=== PATIENT | female | born 1990 | race Caucasian/White ===

== ENCOUNTER → 2016-07-16 | Outpatient (CLI) | payer BC ==
[2016-07-16 19:46] LABS: MEAN CORPUSCULAR HEMOGLOBIN 30.3 pg (27.0-33.0); MEAN CORPUSCULAR HGB CONC 33.5 g/dl (32.0-36.5); MEAN CORPUSCULAR VOLUME 90.5 fl (80.0-96.0); RED CELL DISTRIBUTION WIDTH 12.2 % (11.5-14.5); WHITE BLOOD COUNT 6.7 K/mm3 (4.0-10.0)
[2016-07-16 19:56] LABS: ALBUMIN 3.6 GM/DL (3.2-5.2); ALBUMIN/GLOBULIN RATIO 1.06 (1.00-1.93); ALKALINE PHOSPHATASE 52 U/L (45-117); ALT/SGPT 20 U/L (12-78); ANION GAP 8 MEQ/L (8-16); AST/SGOT 14 U/L (15-37); BILIRUBIN,TOTAL 0.3 MG/DL (0.2-1.0); BLOOD UREA NITROGEN 8 MG/DL (7-18); CALCIUM LEVEL 8.2 MG/DL (8.5-10.1); CARBON DIOXIDE LEVEL 28 MEQ/L (21-32); CHLORIDE LEVEL 104 MEQ/L (98-107); FOLATE 21.1 NG/ML; FREE T4 1.02 NG/DL (0.76-1.46); GLOMERULAR FILTRATION RATE > 60.0 (>60); GLUCOSE, FASTING 94 MG/DL (70-105); POTASSIUM SERUM 4.1 MEQ/L (3.5-5.1); SODIUM LEVEL 140 MEQ/L (136-145); VITAMIN B12 LEVEL 459 PG/ML
[2016-07-16 20:05] LABS: EOSINOPHILS 2 % (0-5)
[2016-07-17 08:19] LABS: CONTROL LINE MONO INT CTR LINE PRESENT
[2016-07-20 00:06] LABS: Lyme Disease IgG/IgM Antibodie <0.91 ISR (0.00-0.90); Lyme Disease IgM Ab Quantitati <0.80 index (0.00-0.79)
== END ==
LOC: M WUC 16:28
PROVIDERS: ATTEND Physician Assistant
DX: R53.83 Other fatigue (principal); R20.2 Paresthesia of skin

== ENCOUNTER → 2016-11-29 | Outpatient (REF) | payer BC ==
[2016-11-29 19:49] LABS: FERRITIN 14 NG/ML (8-252); PERCENT SATURATION 10.8 % (13.2-37.4); TOTAL IRON BINDING CAPACITY 444 UG/DL (250-450); TOTAL PROTEIN 6.9 GM/DL (6.4-8.2)
[2016-12-01 12:52] LABS: ALBUMIN 4.04 GM/DL (3.29-5.55); ALBUMIN % 58.5 % (55.8-66.1); GAMMA GLOBULIN % 16.3 % (11.1-18.8)
[2016-12-02 14:15] LABS: F8 ACTIVITY FOR F8 PANEL 76 % (57-163); F8 ACTIVITY vWB FOR F8 PANEL 59 % (50-200); F8 ANTIGEN FOR F8 PANEL 71 % (50-200); INTERPRETATION: Note (.)
== END ==
LOC: M LAB REF 16:58
PROVIDERS: ATTEND Internal Medicine Medical Oncology
DX: M89.9 Disorder of bone, unspecified (principal)

== ENCOUNTER → 2018-02-09 | Outpatient (CLI) | payer BC ==
[2018-02-09 19:25] LABS: C REACTIVE PROTEIN QUANTITATIV 0.82 MG/DL (0.00-0.30)
[2018-02-09 20:46] LABS: ERYTHROCYTE SEDIMENTATION RATE 7 mm/hr (0-20)
[2018-02-14 00:07] LABS: ANCA-ATYPICAL <1:20 titer (Neg:<1:20); ANTI-SACCHAROMYCES CEREV. IgA <20.0 Units (0.0-24.9); ANTI-SACCHAROMYCES CEREV. IgG 40.5 Units (0.0-24.9); CYTOPLASMIC NEUTROP AB ANCA-C <1:20 titer (Neg:<1:20); PERINUCLEAR AB ANCA-P <1:20 titer (Neg:<1:20)
== END ==
LOC: M SMT 14:59
DX: R11.0 Nausea (principal); R10.9 Unspecified abdominal pain; R19.4 Change in bowel habit; K62.5 Hemorrhage of anus and rectum; Z80.0 Family history of malignant neoplasm of digestive organs; R14.1 Gas pain; R14.0 Abdominal distension (gaseous)
CPT/HCPCS: 86256

== ENCOUNTER → 2018-03-15 | Outpatient (CLI) | payer BC ==
[2018-03-15 18:35] LABS: HEMATOCRIT 37.2 % (36.0-47.0); HEMOGLOBIN 11.9 g/dl (12.0-15.5); MEAN CORPUSCULAR HEMOGLOBIN 28.2 pg (27.0-33.0); MEAN CORPUSCULAR VOLUME 88.2 fl (80.0-96.0); PLATELET COUNT, AUTOMATED 231 10^3/uL (150-450); RED BLOOD COUNT 4.22 10^6/uL (4.00-5.40); RED CELL DISTRIBUTION WIDTH 12.4 % (11.5-14.5); WHITE BLOOD COUNT 6.1 10^3/uL (4.0-10.0)
[2018-03-15 18:45] LABS: ADD MANUAL DIFFER YES; DIFF SLIDE NUMBER 266; POSITIVE MORPH POS FLAG
[2018-03-15 18:49] LABS: FERRITIN 71 NG/ML (8-252); FREE T4 1.27 NG/DL (0.76-1.46); IRON (FE) 50 UG/DL (50-170); PERCENT SATURATION 13.3 % (13.2-45.0); THYROGLOBULIN ANTIBODY 34.6 U/ML (<60.0); THYROID PEROXIDASE ANTIBODY < 28.0 U/ML (<60.0); TOTAL 25(OH) VITAMIN D 25.4 NG/ML (30.0-100.0); TOTAL IRON BINDING CAPACITY 375 UG/DL (250-450)
[2018-03-15 19:42] LABS: ATYPICAL LYMPH 1 % (0-5); BASOPHILS 1 % (0-4); EOSINOPHILS 3 % (0-5); LYMPHOCYTES 50 % (16-52); MONOCYTES 6 % (0-8); NEUTROPHILS 39 % (35-75)
[2018-03-15 19:43] LABS: PLATELET ESTIMATE NORMAL (NORMAL)
[2018-03-19 00:06] LABS: Lyme Disease IgG Ab 18 kDa Ban Absent (.); Lyme Disease IgG Ab 23 kDa Ban Absent (.); Lyme Disease IgG Ab 28 kDa Ban Absent (.); Lyme Disease IgG Ab 30 kDa Ban Absent (.); Lyme Disease IgG Ab 39 kDa Ban Absent (.); Lyme Disease IgG Ab 41 kDa Ban Absent (.); Lyme Disease IgG Ab 45 kDa Ban Absent (.); Lyme Disease IgG Ab 58 kDa Ban Absent (.); Lyme Disease IgG Ab 66 kDa Ban Absent (.); Lyme Disease IgG Ab 93 kDa Ban Absent (.); Lyme Disease IgG West Blot Int Negative (.); Lyme Disease IgG/IgM Antibodie <0.91 ISR (0.00-0.90); Lyme Disease IgM Ab 23 kDa Ban Present (.); Lyme Disease IgM Ab 39 kDa Ban Present (.); Lyme Disease IgM Ab 41 kDa Ban Present (.); Lyme Disease IgM Ab Quantitati 1.25 index (0.00-0.79); Lyme Disease IgM West Blot Int Positive (.); QuantiFERON-TB Gold Plus Negative (Negative)
== END ==
LOC: M SMT 13:40
DX: R53.83 Other fatigue (principal); R61 Generalized hyperhidrosis; R05 Cough
CPT/HCPCS: 83550

== ENCOUNTER → 2018-06-20 | Outpatient (CLI) | payer BC | LOC: M CARPUL 08:16 | PROVIDERS: ATTEND Obstetrics & Gynecology | DX: R01.1 Cardiac murmur, unspecified (principal) ==

== ENCOUNTER → 2018-12-11 | Outpatient (CLI) | payer BC ==
[2018-12-11 17:24] LABS: BASO % 0.6 % (0.0-1.0); EOS # 0.2 10^3/uL (0.0-0.50); EOS % 2.5 % (0.0-3.0); HEMATOCRIT 36.1 % (36.0-47.0); LYMPH # 2.6 10^3/uL (1.5-6.5); LYMPH % 36.1 % (24.0-44.0); MEAN CORPUSCULAR HGB CONC 33.2 g/dl (32.0-36.5); MEAN CORPUSCULAR VOLUME 90.3 fl (80.0-96.0); MONO # 0.5 10^3/uL (0.0-0.8); MONO % 7.1 % (0.0-5.0); NEUTROPHILS # 3.8 10^3/uL (1.8-7.7); NEUTROPHILS % 53.6 % (36.0-66.0); PLATELET COUNT, AUTOMATED 295 10^3/uL (150-450); WHITE BLOOD COUNT 7.2 10^3/uL (4.0-10.0)
[2018-12-11 17:34] LABS: C REACTIVE PROTEIN QUANTITATIV 1.93 MG/DL (0.00-0.30); FREE T4 0.98 NG/DL (0.76-1.46); THYROID STIMULATING HORMONE 1.39 uIU/ML (0.358-3.740)
[2018-12-11 18:11] LABS: ERYTHROCYTE SEDIMENTATION RATE 10 mm/hr (0-20)
[2018-12-11 18:13] LABS: HEMOGLOBIN A1c 5.7 %
== END ==
LOC: M SMT 14:39
PROVIDERS: ATTEND Family Medicine
DX: E66.3 Overweight (principal); L02.411 Cutaneous abscess of right axilla

== ENCOUNTER → 2019-09-10 | Outpatient (REF) | payer BC | LOC: M LAB REF 16:44 | PROVIDERS: ATTEND Family Medicine | DX: R10.2 Pelvic and perineal pain (principal) ==

== ENCOUNTER → 2019-09-11 | Outpatient (REF) | payer OTHER | LOC: M LAB REF 17:52 | PROVIDERS: ATTEND Family Medicine | DX: R10.2 Pelvic and perineal pain (principal) ==

== ENCOUNTER → 2019-10-12 | Outpatient (REF) | payer OTHER | LOC: M SFHCWAGY 17:55 | PROVIDERS: ATTEND Advanced Practice Midwife | DX: Z12.4 Encounter for screening for malignant neoplasm of cervix (principal) ==

== ENCOUNTER → 2019-12-14 | Outpatient (REF) | payer OTHER | LOC: M LAB REF 10:09 | PROVIDERS: ATTEND Dermatology | DX: C44.509 Unspecified malignant neoplasm of skin of other part of trunk (principal) ==

== ENCOUNTER → 2020-01-04 | Outpatient (REF) | payer OTHER | LOC: M LAB REF 13:30 | PROVIDERS: ATTEND Dermatology | DX: C44.519 Basal cell carcinoma of skin of other part of trunk (principal) ==

== ENCOUNTER → 2020-01-16 | Outpatient (CLI) | payer OTHER | LOC: M PLALAB 09:44 | PROVIDERS: ATTEND Advanced Practice Midwife | DX: O36.80X0 Pregnancy with inconclusive fetal viability, not applicable or unspecified (principal); Z3A.00 Weeks of gestation of pregnancy not specified ==

== ENCOUNTER → 2020-01-18 | Outpatient (CLI) | payer OTHER | LOC: M PLALAB 09:52 | PROVIDERS: ATTEND Advanced Practice Midwife | DX: Z34.00 Encounter for supervision of normal first pregnancy, unspecified trimester (principal) ==

== ENCOUNTER → 2020-01-23 | Outpatient (CLI) | payer OTHER | LOC: M PLALAB 12:38 | PROVIDERS: ATTEND Advanced Practice Midwife | DX: O02.1 Missed abortion (principal) ==

== ENCOUNTER → 2020-02-01 | Outpatient (CLI) | payer OTHER | LOC: M PLALAB 11:30 | PROVIDERS: ATTEND Advanced Practice Midwife | DX: O20.0 Threatened abortion (principal) ==

== ENCOUNTER → 2020-02-08 | Outpatient (CLI) | payer OTHER | LOC: M PLALAB 14:29 | PROVIDERS: ATTEND Advanced Practice Midwife | DX: O20.0 Threatened abortion (principal); Z3A.00 Weeks of gestation of pregnancy not specified ==

== ENCOUNTER → 2020-02-15 | Outpatient (CLI) | payer OTHER | LOC: M PLALAB 09:53 | PROVIDERS: ATTEND Advanced Practice Midwife | DX: O20.0 Threatened abortion (principal) ==

== ENCOUNTER → 2020-02-26 | Outpatient (REF) | payer OTHER | LOC: M LAB REF 16:55 | PROVIDERS: ATTEND Physician Assistant | DX: S21.209A Unspecified open wound of unspecified back wall of thorax without penetration into thoracic cavity, initial encounter (principal); X58.XXXA Exposure to other specified factors, initial encounter; Y92.89 Other specified places as the place of occurrence of the external cause ==

== ENCOUNTER → 2020-04-04 | Outpatient (CLI) | payer OTHER ==
[2020-04-04 14:22] LABS: BASO % 0.6 % (0.0-1.0); EOS # 0.2 10^3/uL (0.0-0.5); EOS % 3.7 % (0.0-3.0); HEMATOCRIT 41.5 % (36.0-47.0); HEMOGLOBIN 13.4 g/dl (12.0-15.5); LYMPH # 2.7 10^3/uL (1.5-5.0); LYMPH % 44.2 % (24.0-44.0); MEAN CORPUSCULAR HGB CONC 32.3 g/dl (32.0-36.5); MEAN CORPUSCULAR VOLUME 92.8 fl (80.0-96.0); MONO # 0.4 10^3/uL (0.0-0.8); NEUTROPHILS # 2.7 10^3/uL (1.5-8.5); NEUTROPHILS % 44.3 % (36.0-66.0); PLATELET COUNT, AUTOMATED 353 10^3/uL (150-450); RED BLOOD COUNT 4.47 10^6/uL (4.00-5.40); WHITE BLOOD COUNT 6.2 10^3/uL (4.0-10.0)
[2020-04-04 15:04] LABS: ALBUMIN 3.9 GM/DL (3.2-5.2); ALT/SGPT 24 U/L (12-78); BILIRUBIN,TOTAL 0.5 MG/DL (0.2-1.0); BLOOD UREA NITROGEN 12 MG/DL (7-18); CALCIUM LEVEL 9.2 MG/DL (8.5-10.1); CARBON DIOXIDE LEVEL 30 MEQ/L (21-32); CHLORIDE LEVEL 105 MEQ/L (98-107); CREATININE FOR GFR 0.96 MG/DL (0.55-1.30); FREE T4 1.01 NG/DL (0.76-1.46); GLOMERULAR FILTRATION RATE > 60.0 (>60); GLUCOSE, FASTING 93 MG/DL (70-100); POTASSIUM SERUM 4.3 MEQ/L (3.5-5.1); SODIUM LEVEL 140 MEQ/L (136-145); TOTAL PROTEIN 7.4 GM/DL (6.4-8.2)
== END ==
LOC: M PLALAB 09:14
PROVIDERS: ATTEND Family Medicine
DX: Z13.29 Encounter for screening for other suspected endocrine disorder (principal); Z13.0 Encounter for screening for diseases of the blood and blood-forming organs and certain disorders involving the immune mechanism; E55.9 Vitamin D deficiency, unspecified

== ENCOUNTER → 2020-05-06 | Outpatient (REF) | payer OTHER ==
[2020-05-06 13:06] LABS: HEMATOCRIT 39.6 % (36.0-47.0); HEMOGLOBIN 12.8 g/dl (12.0-15.5); MEAN CORPUSCULAR HEMOGLOBIN 29.1 pg (27.0-33.0); MEAN CORPUSCULAR HGB CONC 32.3 g/dl (32.0-36.5); PLATELET COUNT, AUTOMATED 334 10^3/uL (150-450); WHITE BLOOD COUNT 8.2 10^3/uL (4.0-10.0)
[2020-05-06 14:28] LABS: HCG, SERUM QUANTITATIVE 1423 MIU/ML; HEPATITIS C VIRUS ABY INDEX 0.1 INDEX (<0.8); HIV 1&2 SCREEN CENTAUR NEGATIVE (NEGATIVE)
== END ==
LOC: M LAB REF 12:27
PROVIDERS: ATTEND Advanced Practice Midwife
DX: Z32.01 Encounter for pregnancy test, result positive (principal)

== ENCOUNTER → 2020-05-14 | Outpatient (CLI) | payer OTHER ==
--- NOTE | 2020-05-14 09:48 | REP ---
INDICATION: DATING/VIABILITY. COMPARISON: None. TECHNIQUE: Transabdominal and transvaginal scanning. FINDINGS: Scanning demonstrates a single living intrauterine gestation in a free-floating lie. heart rate is recorded at 103 beats per minute. Mean sac size diameter is 2.1 cm which would correspond with a gestational age estimate is 6 weeks 4 days. The crown-rump length of the embryonic pole is 3 mm which would correspond with a gestational age estimate of 5 weeks 6 days. Closed cervical length is 3.4 cm. IMPRESSION: Findings consistent with a living single intrauterine gestation at 5 weeks 6 days by crown-rump length. LIBRA by sonography January 08, 2021. heart rate somewhat slow at 103 beats per minute. No other abnormality. Visualization is somewhat limited due to very early gestational age. <Electronically signed by Estrada Gtz > 05/14/20 [id number]
== END ==
LOC: M WHC 09:01
PROVIDERS: ATTEND Advanced Practice Midwife
DX: Z36.9 Encounter for antenatal screening, unspecified (principal); Z3A.01 Less than 8 weeks gestation of pregnancy

== ENCOUNTER → 2020-05-29 | Outpatient (CLI) | payer OTHER ==
--- NOTE | 2020-05-29 14:06 | REP ---
INDICATION: DATING/VIABILITY COMPARISON: None. TECHNIQUE: Transabdominal 1st trimester obstetrical ultrasound with color Doppler evaluation. FINDINGS: Single live early intrauterine is appreciated. Gestational sac with yolk sac and pole identified. [place]-rump length of 17 mm corresponds to 8 weeks 1 day gestational age with estimated date of delivery 01/07/2021. heart rate equals 165 beats per minute. No gross abnormalities are identified. IMPRESSION: Single live early intrauterine at 8 weeks 1 day gestational age. Complete anatomical assessment should be performed and 19-20 weeks. <Electronically signed by Jon Pearson > 05/29/20 [id number]
== END ==
LOC: M WHC 12:30
PROVIDERS: ATTEND Obstetrics & Gynecology
DX: Z36.9 Encounter for antenatal screening, unspecified (principal); Z3A.08 8 weeks gestation of pregnancy

== ENCOUNTER → 2020-08-19 | Outpatient (CLI) | payer OTHER ==
--- NOTE | 2020-08-19 10:18 | REP ---
INDICATION: ANATOMY. COMPARISON: None. TECHNIQUE: Multiple sonographic images of the gravid uterus. FINDINGS: There is a single intrauterine gestation in a cephalic presentation. The placenta is posterior with grade 1 maturity. There is no previa. The umbilical cord inserts centrally on the to the placenta. There is a three-vessel cord. The cord insertion is unremarkable. The cervix measures 3.4 cm. heart rate is 143 beats per minute. Subjectively the amniotic fluid volume is normal. The composite ultrasound gestational age by today's study is 20 weeks 1 day with an LIBRA of 01/05/2021. Gestational age by the 1st ultrasound is 21 weeks 0 days, the LIBRA is 12/30/2020. Gestational age by LMP is 21 weeks 0 days, the LIBRA is 12/30/2020. The weight is 376 g which corresponds to 0 lb, 13 oz. This is the 33rd percentile for 21 weeks 0 days. The following anatomic structures are unremarkable: Cranium, cavum septum pellucidum, falx, intracranial ventricles, choroid plexus, cerebellum, cisterna magna, nuchal fold, face, upper lip, cardiac rhythm, diaphragm, stomach, abdominal wall, right and left kidneys, bladder, spine, right and left upper extremities, right left lower extremities and 3 vessel cord. Suboptimally demonstrated because of position are: Four-chamber heart, right cardiac ventricular outflow tract and left cardiac ventricular outflow tract. A follow-up study dedicated to these structures might be considered. IMPRESSION: anatomy as discussed above. <Electronically signed by Fabricio Rosas > 08/19/20 1415
== END ==
LOC: M WHC 08:04
PROVIDERS: ATTEND Advanced Practice Midwife
DX: Z36.3 Encounter for antenatal screening for malformations (principal); Z3A.21 21 weeks gestation of pregnancy

== ENCOUNTER → 2020-09-17 | Outpatient (CLI) | payer OTHER ==
--- NOTE | 2020-09-17 16:13 | REP ---
INDICATION: F/U ANATOMY. Four-chamber heart, right and left cardiac outflow tract views. COMPARISON: Comparison study is from August 19, 2020.. TECHNIQUE: Transabdominal obstetric sonography. FINDINGS: Scanning through the gravid uterus demonstrates a viable single intrauterine gestation in variable lie. motion is observed and heart rate is recorded at 142 beats per minute. A posterior placenta is seen, grade 1, without evidence of placenta previa. Closed cervical length is measured at 4.8 cm transabdominally. No extrauterine abnormality is observed. Amniotic fluid is subjectively normal. No anomaly is seen. The following anatomic structures are identified and felt to be sonographically unremarkable: cranium, choroid plexus, cavum, cerebellum and posterior fossa, face and profile, lungs, four-chamber heart with left and right ventricular outflow tract views, diaphragm, left-sided stomach, abdominal wall cord insertion, three-vessel umbilical cord, kidneys and bladder, and upper and lower extremities. spine is less than optimally seen today but was visualized previously. Biometry chart: BPD 5.9 cm, 24 weeks 1 day Head circumference 22.4 cm, 24 weeks 3 days Abdominal circumference 19.3 cm, 24 weeks 0 days Femur length 4.3 cm, 24 weeks 1 day Humeral length 4.3 cm, 25 weeks 5 days HC AC ratio normal 1.16 Cephalic index normal 0.72 Estimated weight 663 g, 1 lb 7 oz, less than 3rd percentile for 25 weeks 1 day IMPRESSION: Viable single intrauterine gestation at 24 weeks 3 days by today's composite sonographic criteria. LIBRA by today's sonography January 04, 2021. No complication identified. Expected gestational age estimate based on prior sonography is 25 weeks 1 day. LIBRA by prior sonography 30 December 2020. Estimated weight is less than 3rd percentile for 25 weeks 1 day. Thirty-third percentile previously. Recommend follow-up growth study. In conjunction with the prior study, anatomic survey is felt to be complete. <Electronically signed by Estrada Gtz > 09/17/20 [id number]
== END ==
LOC: M WHC 08:31
PROVIDERS: ATTEND Obstetrics & Gynecology
DX: Z36.2 Encounter for other antenatal screening follow-up (principal); Z3A.24 24 weeks gestation of pregnancy

== ENCOUNTER → 2020-10-07 | Outpatient (CLI) | payer OTHER ==
[2020-10-07 10:59] LABS: HEMATOCRIT 33.3 % (36.0-47.0); HEMOGLOBIN 10.7 g/dl (12.0-15.5); MEAN CORPUSCULAR HEMOGLOBIN 29.2 pg (27.0-33.0); MEAN CORPUSCULAR HGB CONC 32.1 g/dl (32.0-36.5); MEAN CORPUSCULAR VOLUME 90.7 fl (80.0-96.0); PLATELET COUNT, AUTOMATED 338 10^3/uL (150-450); RED BLOOD COUNT 3.67 10^6/uL (4.00-5.40); WHITE BLOOD COUNT 10.8 10^3/uL (4.0-10.0)
== END ==
LOC: M WUC 08:46
PROVIDERS: ATTEND Advanced Practice Midwife
DX: Z34.82 Encounter for supervision of other normal pregnancy, second trimester (principal)

== ENCOUNTER → 2020-12-09 | Outpatient (REF) | payer OTHER | LOC: M LAB REF 17:25 | PROVIDERS: ATTEND Obstetrics & Gynecology | DX: Z36.89 Encounter for other specified antenatal screening (principal) ==

== ENCOUNTER 2020-12-31 20:40 | Inpatient (IN) | payer OTHER ==
[~2020-12-31] VITALS: Ht 170.2 cm; Wt 93.8 kg
[2020-12-31] MEDS ORDERED: HOME MED LIST COMPLETE! XX SCH (21:15)
[2020-12-31 21:17] VITALS: BP 138/104
[2020-12-31] MEDS ORDERED: PRENTAB9 PO (21:17)
[2020-12-31 21:27] VITALS: BP 150/106
[2020-12-31 21:31] VITALS: BP 144/95
[2020-12-31] MEDS ORDERED: ACETAMINOPHEN 500 MG TAB PO ONE (21:35)
[2020-12-31 22:03] LABS: HEMATOCRIT 28.8 % (36.0-47.0); MEAN CORPUSCULAR HEMOGLOBIN 24.9 pg (27.0-33.0); MEAN CORPUSCULAR HGB CONC 31.3 g/dl (32.0-36.5); MEAN CORPUSCULAR VOLUME 79.8 fl (80.0-96.0); PLATELET COUNT, AUTOMATED 286 10^3/uL (150-450); RED BLOOD COUNT 3.61 10^6/uL (4.00-5.40); WHITE BLOOD COUNT 11.2 10^3/uL (4.0-10.0)
[2020-12-31 22:06] VITALS: BP 141/87
[2020-12-31 22:10] LABS: TOTAL PROTEIN,RANDOM URINE 6.6 MG/DL (0.0-12.0)
[2020-12-31 22:35] LABS: ALT/SGPT 17 U/L (12-78); BILIRUBIN,TOTAL 0.2 MG/DL (0.2-1.0); CREATININE FOR GFR 0.61 MG/DL (0.55-1.30); GLOMERULAR FILTRATION RATE > 60.0 (>60); LDH LACTATE DEHYDROGENASE 194 U/L (84-246); URIC ACID 4.6 MG/DL (2.6-6.0)
[2020-12-31 22:36] VITALS: BP 145/91
[2021-01-01] VITALS (51 sets, daily range): BP systolic 113–171; BP diastolic 59–112
[2021-01-01] MEDS ORDERED: PENICILLIN G POTASSIUM IV 5 MU in D5W MINI-BAG PLUS 100 ML IV STA (00:26)
[2021-01-01] MEDS ORDERED: METHYLERGONOVINE MALEATE 0.2 MG/ML VIAL (J2210) IM PRN (00:30)
[2021-01-01] MEDS ORDERED: OXYTOCIN DRIP 30 UNITS in IV 1 EA IV PRN (00:30)
[2021-01-01] MEDS ORDERED: OXYTOCIN INJ 10 UNITS/ML VIAL (J2590) IM PRN (00:30)
[2021-01-01] MEDS ORDERED: LIDOCAINE 1% MDV 20ML VIAL INFIL PRN (00:30)
[2021-01-01] MEDS: miSOPROStol 50MCG 1/2 TABLET PO SCH ×3 (01:14→09:51)
[2021-01-01 01:16] LABS: HEMATOCRIT 30.1 % (36.0-47.0); HEMOGLOBIN 9.4 g/dl (12.0-15.5); MEAN CORPUSCULAR HEMOGLOBIN 24.8 pg (27.0-33.0); MEAN CORPUSCULAR HGB CONC 31.2 g/dl (32.0-36.5); MEAN CORPUSCULAR VOLUME 79.4 fl (80.0-96.0); PLATELET COUNT, AUTOMATED 325 10^3/uL (150-450); RED BLOOD COUNT 3.79 10^6/uL (4.00-5.40); WHITE BLOOD COUNT 12.5 10^3/uL (4.0-10.0)
[2021-01-01] MEDS ORDERED: diphenhydrAMINE 50MG CAP PO ONE (02:30)
[2021-01-01 19:14] LABS: HEMATOCRIT 32.7 % (36.0-47.0); HEMOGLOBIN 10.1 g/dl (12.0-15.5); MEAN CORPUSCULAR HEMOGLOBIN 24.5 pg (27.0-33.0); MEAN CORPUSCULAR HGB CONC 30.9 g/dl (32.0-36.5); MEAN CORPUSCULAR VOLUME 79.2 fl (80.0-96.0); PLATELET COUNT, AUTOMATED 353 10^3/uL (150-450); RED BLOOD COUNT 4.13 10^6/uL (4.00-5.40); WHITE BLOOD COUNT 17.2 10^3/uL (4.0-10.0)
[2021-01-01] MEDS ORDERED: FENTANYL 2MCG/ML ROPIVACAINE 0.2% IN 0.9% NACL 100ML IVBAG As Ordered ONE (19:19)
[2021-01-01] MEDS: FENTANYL/ROPIVACAINE/NACL BAG 100 ML EPIDURAL SCH (19:38)
[2021-01-01] MEDS ORDERED: ONDANSETRON 4MG/2ML VIAL As Ordered ONE (20:00)
[2021-01-01] MEDS ORDERED: diphenhydrAMINE 50MG/ML VIAL (J1200) IV PRN (20:25)
[2021-01-01] MEDS ORDERED: NALOXONE INJ 0.4MG/1ML VIAL (J2310 PER 1MG) IV PRN (20:25)
[2021-01-01] MEDS ORDERED: EPIDURAL COMMENT XX SCH (20:25)
[2021-01-01] MEDS ORDERED: EPIDURAL/PCA KEYS XX PRN (20:25)
[2021-01-01] MEDS ORDERED: LACTATED RINGER'S 1000 ML IV PRN (20:25)
[2021-01-01] MEDS ORDERED: ePHEDrine SULFATE 25 MG/5 ML(5MG/ML) SYRINGE IV PRN (20:25)
[2021-01-01] MEDS ORDERED: REFRIGERATOR IV KEYS XX PRN (20:25)
[2021-01-01] MEDS: ONDANSETRON 4MG/2ML VIAL IV PRN (20:50)
[2021-01-01] MEDS ORDERED: OXYTOCIN DRIP 30 UNITS in IV 1 EA IV SCH (21:20)
[2021-01-01] MEDS: LR 1,000 ML IV SCH (21:20)
[2021-01-02] VITALS (20 sets, daily range): BP systolic 126–157; BP diastolic 65–102
[2021-01-02] MEDS ORDERED: FENTANYL 2MCG/ML ROPIVACAINE 0.2% IN 0.9% NACL 100ML IVBAG As Ordered ONE (02:31)
[2021-01-02] MEDS: FENTANYL/ROPIVACAINE/NACL BAG 100 ML EPIDURAL SCH (02:39)
[2021-01-02] MEDS: ONDANSETRON 4MG/2ML VIAL IV PRN (04:32)
[2021-01-02] MEDS: LR 1,000 ML IV SCH (07:18)
[2021-01-02] MEDS ORDERED: LR 1,000 ML IV SCH ×2 (09:00→11:25)
[2021-01-02] MEDS ORDERED: LACTATED RINGER'S 1000 ML IV STA (09:00)
[2021-01-02] MEDS ORDERED: ceFAZolin SOD 2 GM in IV 1 EA IV ONE (09:00)
[2021-01-02] MEDS ORDERED: OXYTOCIN DRIP 30 UNITS in IV 1 EA IV PRN (09:00)
[2021-01-02] MEDS ORDERED: AZITHROMYCIN INJ 500 MG, VIAL MATE ADAPTER 1 EACH in NS 250 ML IV ONE (09:00)
[2021-01-02] MEDS ORDERED: METHYLERGONOVINE MALEATE 0.2 MG/ML VIAL (J2210) IM PRN (09:00)
[2021-01-02] MEDS ORDERED: BICITRA 30ML SOLN UDC PO ONE (09:00)
[2021-01-02] MEDS ORDERED: dexameTHASONE 4 MG/ML 1ML VIAL (J1100 PER 1MG) As Ordered ONE (09:28)
[2021-01-02] MEDS ORDERED: OXYTOCIN INJ 10 UNITS/ML VIAL (J2590) As Ordered ONE (09:28)
[2021-01-02] MEDS ORDERED: KETOROLAC 60MG 2ML VIAL As Ordered ONE (09:28)
[2021-01-02] MEDS ORDERED: ONDANSETRON 4MG/2ML VIAL As Ordered ONE (09:28)
[2021-01-02] MEDS ORDERED: MORPHINE PRES-FREE INJ 10 MG/10 ML VIAL (J2274) As Ordered ONE (09:28)
[2021-01-02] MEDS ORDERED: LIDOCAINE 2% W/EPINEPHRINE 20ML VIAL **PRES FREE As Ordered ONE (09:34)
[2021-01-02] MEDS ORDERED: METOCLOPRAMIDE INJ 10MG/2ML VIAL (J2765 PER 1) IV PRN ×2 (10:22→11:25)
[2021-01-02] MEDS ORDERED: diphenhydrAMINE 50MG/ML VIAL (J1200) IV PRN (10:22)
[2021-01-02] MEDS ORDERED: ONDANSETRON 4MG/2ML VIAL IV PRN ×3 (10:22→11:25)
[2021-01-02] MEDS ORDERED: NALBUPHINE HCL 10 MG/ML AMP (J2300) IV PRN (10:22)
[2021-01-02] MEDS ORDERED: NALOXONE INJ 0.4MG/1ML VIAL (J2310 PER 1MG) IV PRN ×2 (10:22)
[2021-01-02] MEDS ORDERED: fentaNYL 100 MCG/2 ML INJECTION (J3010) As Ordered ONE (10:24)
[2021-01-02] MEDS ORDERED: OXYTOCIN DRIP 30 UNITS in IV 1 EA IV SCH (11:00)
[2021-01-02] MEDS ORDERED: ACETAMINOPHEN 500 MG TAB PO PRN (11:00)
[2021-01-02] MEDS ORDERED: PERCOCET 5MG/325MG TAB PO PRN ×2 (11:00→11:25)
[2021-01-02] MEDS ORDERED: MEASLES,MUMPS,RUBELLA VACCINE INJ (MMR-II) (90707) SC SCH (11:00)
[2021-01-02] MEDS ORDERED: RHOGAM 300 MCG (1500 IU) INJ (J2790) IM SCH (11:00)
[2021-01-02] MEDS ORDERED: OXYTOCIN 30 UNITS IN 0.9% NaCl 500ML IV BAG (J2590) As Ordered ONE (11:24)
[2021-01-02] MEDS ORDERED: fentaNYL 100 MCG/2 ML INJECTION (J3010) IV PRN (11:25)
[2021-01-02] MEDS: OXYTOCIN DRIP 30 UNITS in IV 1 EA IV SCH ×2 (11:41→15:25)
[2021-01-02] MEDS ORDERED: LABETALOL 100MG/20ML VIAL IV STA ×2 (11:48→12:15)
[2021-01-02] MEDS ORDERED: LABETALOL 100MG/20ML VIAL As Ordered ONE (11:49)
[2021-01-02] MEDS ORDERED: IBUP80TA PO (11:59)
[2021-01-02] MEDS ORDERED: COLA100C5 PO (11:59)
[2021-01-02] MEDS ORDERED: PERCOCET PO (12:00)
[2021-01-02] MEDS ORDERED: PERCOCET 5MG/325MG TAB As Ordered ONE (12:04)
[2021-01-02] MEDS: LABETALOL 200 MG TAB PO SCH ×2 (12:24→20:26)
[2021-01-02] MEDS: DOCUSATE SODIUM 100MG CAPSULE PO SCH ×2 (15:41→20:24)
[2021-01-02] MEDS: PRENATAL VITAMINS CHEWABLE TABLET PO SCH (15:41)
[2021-01-02] MEDS: KETOROLAC 30 MG/ML 1ML VIAL IV SCH ×2 (17:38→22:06)
[2021-01-02] MEDS: SIMETHICONE 80MG CHEW TAB PO PRN (19:29)
[2021-01-03] MEDS: KETOROLAC 30 MG/ML 1ML VIAL IV SCH (04:35)
[2021-01-03 06:46] VITALS: BP 134/86
[2021-01-03 07:43] LABS: HEMATOCRIT 25.2 % (36.0-47.0); MEAN CORPUSCULAR HEMOGLOBIN 25.3 pg (27.0-33.0); MEAN CORPUSCULAR HGB CONC 31.7 g/dl (32.0-36.5); MEAN CORPUSCULAR VOLUME 79.7 fl (80.0-96.0); PLATELET COUNT, AUTOMATED 273 10^3/uL (150-450); RED BLOOD COUNT 3.16 10^6/uL (4.00-5.40); WHITE BLOOD COUNT 22.9 10^3/uL (4.0-10.0)
[2021-01-03] MEDS: DOCUSATE SODIUM 100MG CAPSULE PO SCH ×2 (09:04→20:23)
[2021-01-03] MEDS: PRENATAL VITAMINS CHEWABLE TABLET PO SCH (09:04)
[2021-01-03] MEDS: LABETALOL 200 MG TAB PO SCH ×2 (09:05→20:23)
[2021-01-03 10:00] VITALS: BP 139/67
[2021-01-03] MEDS: OXYTOCIN DRIP 30 UNITS in IV 1 EA IV SCH (10:15)
[2021-01-03] MEDS: PERCOCET 5MG/325MG TAB PO PRN ×2 (13:01→21:32)
[2021-01-03] MEDS: IBUPROFEN 800 MG TAB PO SCH ×2 (13:01→20:23)
[2021-01-03 14:00] VITALS: BP 132/77
[2021-01-03 17:57] VITALS: BP 131/65
[2021-01-03 22:03] VITALS: BP 143/91
[2021-01-04] VITALS (9 sets, daily range): BP systolic 142–167; BP diastolic 82–94
[2021-01-04] MEDS: PERCOCET 5MG/325MG TAB PO PRN ×3 (03:38→20:47)
[2021-01-04] MEDS: IBUPROFEN 800 MG TAB PO SCH ×3 (05:02→20:46)
[2021-01-04] MEDS: DOCUSATE SODIUM 100MG CAPSULE PO SCH ×2 (08:26→20:46)
[2021-01-04] MEDS: PRENATAL VITAMINS CHEWABLE TABLET PO SCH (08:26)
[2021-01-04] MEDS: LABETALOL 200 MG TAB PO SCH ×2 (08:27→20:49)
[2021-01-04] MEDS: SIMETHICONE 80MG CHEW TAB PO PRN (13:29)
[2021-01-05] VITALS (23 sets, daily range): BP systolic 131–193; BP diastolic 79–118
[2021-01-05] MEDS ORDERED: LABETALOL 100MG/20ML VIAL IV ONE (02:35)
[2021-01-05] MEDS: IBUPROFEN 800 MG TAB PO SCH ×3 (04:08→20:27)
[2021-01-05] MEDS: PERCOCET 5MG/325MG TAB PO PRN ×3 (04:09→19:58)
[2021-01-05] MEDS: PRENATAL VITAMINS CHEWABLE TABLET PO SCH (08:02)
[2021-01-05] MEDS: DOCUSATE SODIUM 100MG CAPSULE PO SCH ×2 (08:03→20:27)
[2021-01-05] MEDS: LABETALOL 200 MG TAB PO SCH (08:03)
[2021-01-05] MEDS ORDERED: LABETALOL 200 MG TAB PO SCH ×2 (09:00→16:00)
[2021-01-05 09:09] LABS: HEMATOCRIT 28.1 % (36.0-47.0); HEMOGLOBIN 8.8 g/dl (12.0-15.5); MEAN CORPUSCULAR HEMOGLOBIN 25.1 pg (27.0-33.0); MEAN CORPUSCULAR HGB CONC 31.3 g/dl (32.0-36.5); MEAN CORPUSCULAR VOLUME 80.3 fl (80.0-96.0); PLATELET COUNT, AUTOMATED 295 10^3/uL (150-450); WHITE BLOOD COUNT 12.1 10^3/uL (4.0-10.0)
[2021-01-05] MEDS ORDERED: LABE20TAB PO (09:34)
[2021-01-05] MEDS ORDERED: LABETALOL 200 MG TAB PO ONE (13:55)
[2021-01-05] MEDS ORDERED: LABETALOL 100MG/20ML VIAL IV STA ×2 (15:30→16:46)
[2021-01-05] MEDS ORDERED: NIFEdipine 30 MG XL TAB PO STA (15:30)
[2021-01-05] MEDS ORDERED: NIFEdipine 10 MG CAP PO STA (18:06)
[2021-01-05] MEDS: LABETALOL 100MG TAB PO SCH (20:29)
[2021-01-06] VITALS (10 sets, daily range): BP systolic 135–175; BP diastolic 80–110
[2021-01-06] MEDS: PERCOCET 5MG/325MG TAB PO PRN ×4 (02:20→18:13)
[2021-01-06] MEDS ORDERED: NIFEdipine 10 MG CAP PO STA (02:25)
[2021-01-06] MEDS: IBUPROFEN 800 MG TAB PO SCH ×3 (05:37→20:22)
[2021-01-06] MEDS ORDERED: NIFEdipine 30 MG XL TAB PO SCH ×2 (06:00→09:00)
[2021-01-06] MEDS: DOCUSATE SODIUM 100MG CAPSULE PO SCH ×2 (09:28→20:22)
[2021-01-06] MEDS: LABETALOL 100MG TAB PO SCH ×3 (09:28→21:49)
[2021-01-06] MEDS: PRENATAL VITAMINS CHEWABLE TABLET PO SCH (09:28)
[2021-01-06] MEDS ORDERED: LABETALOL 100MG/20ML VIAL IV STA (23:17)
[2021-01-07] VITALS (20 sets, daily range): BP systolic 148–181; BP diastolic 56–105
[2021-01-07] MEDS: IBUPROFEN 800 MG TAB PO SCH ×3 (04:53→20:25)
[2021-01-07] MEDS: LABETALOL 200 MG TAB PO SCH ×3 (06:33→21:51)
[2021-01-07] MEDS ORDERED: NIFE1TAB52 PO (08:24)
[2021-01-07] MEDS: DOCUSATE SODIUM 100MG CAPSULE PO SCH ×2 (09:09→20:25)
[2021-01-07] MEDS: NIFEdipine 30 MG XL TAB PO SCH (09:09)
[2021-01-07] MEDS: PRENATAL VITAMINS CHEWABLE TABLET PO SCH (09:09)
[2021-01-07] MEDS: PERCOCET 5MG/325MG TAB PO PRN (09:17)
[2021-01-07] MEDS ORDERED: LABETALOL 100MG TAB PO SCH (14:00)
[2021-01-08 02:15] VITALS: BP 167/94
[2021-01-08 02:35] VITALS: BP 167/82
[2021-01-08] MEDS: IBUPROFEN 800 MG TAB PO SCH (04:56)
[2021-01-08] MEDS: LABETALOL 200 MG TAB PO SCH (05:48)
[2021-01-08 05:50] VITALS: BP 162/99
[2021-01-08 07:40] VITALS: BP 152/88
[2021-01-08 08:12] VITALS: BP 152/88
[2021-01-08] MEDS: NIFEdipine 30 MG XL TAB PO SCH (08:12)
[2021-01-08] MEDS: DOCUSATE SODIUM 100MG CAPSULE PO SCH (08:13)
[2021-01-08] MEDS: PRENATAL VITAMINS CHEWABLE TABLET PO SCH (08:13)
[2021-01-08 09:49] VITALS: BP 143/76
[2021-01-08] MEDS ORDERED: LABE20TAB PO (15:27)
== END 2021-01-08 10:05 | disposition home or self-care (01) | DRG 540 ==
LOC: M LDO 20:40 → M LDI 22:43 → M OBS 01-02 12:56
PROVIDERS: ADMIT Advanced Practice Midwife; ATTEND Obstetrics & Gynecology
PROC: 3E0P7GC Introduction of Other Therapeutic Substance into Female Reproductive, Via Natural or Artificial Opening (ICD-10-PCS; 2020-12-31)
PROC: 10D00Z1 Extraction of Products of Conception, Low, Open Approach (ICD-10-PCS; principal; 2021-01-02 09:41)
PROC: 30233N1 Transfusion of Nonautologous Red Blood Cells into Peripheral Vein, Percutaneous Approach (ICD-10-PCS; 2021-01-04)
DX: O14.14 Severe pre-eclampsia complicating childbirth (principal); O64.0XX0 Obstructed labor due to incomplete rotation of fetal head, not applicable or unspecified; D64.9 Anemia, unspecified; Z3A.39 39 weeks gestation of pregnancy; O99.02 Anemia complicating childbirth; Z37.0 Single live birth

== ENCOUNTER → 2022-04-06 | Outpatient (CLI) | payer BC ==
[~2022-04-06] MED LIST: COLA100C5 PO; IBUP80TA PO; LABE20TAB PO; NIFE1TAB52 PO; PERCOCET PO; PRENTAB9 PO
[2022-04-06 17:51] LABS: HEMATOCRIT 36.6 % (36.0-47.0); HEMOGLOBIN 12.2 g/dl (12.0-15.5); MEAN CORPUSCULAR HGB CONC 33.3 g/dl (32.0-36.5); MEAN CORPUSCULAR VOLUME 89.9 fl (80.0-96.0); PLATELET COUNT, AUTOMATED 369 10^3/uL (150-450); RED BLOOD COUNT 4.07 10^6/uL (4.00-5.40); WHITE BLOOD COUNT 12.6 10^3/uL (4.0-10.0)
[2022-04-06 18:51] LABS: CREATININE,RANDOM URINE 123.2 MG/DL; TOTAL PROTEIN,RANDOM URINE 15.1 MG/DL (0.0-14.0)
[2022-04-06 19:21] LABS: GC DNA AMPLIFICATION NEGATIVE (NEGATIVE)
[2022-04-06 19:37] LABS: ALT/SGPT 9 U/L (7.0-40); BILIRUBIN,TOTAL 0.2 MG/DL (0.3-1.2); CREATININE FOR GFR 0.53 MG/DL (0.55-1.30); GLOMERULAR FILTRATION RATE > 60.0 (>60); HEPATITIS C VIRUS ABY INDEX 0.1 INDEX (<0.8); HIV 1&2 SCREEN CENTAUR NEGATIVE (NEGATIVE); LDH LACTATE DEHYDROGENASE 164 U/L (120-246); URIC ACID 2.7 MG/DL (3.1-7.8)
== END ==
LOC: M PLALAB 15:50
PROVIDERS: ATTEND Advanced Practice Midwife
DX: Z34.81 Encounter for supervision of other normal pregnancy, first trimester (principal)

== ENCOUNTER → 2022-05-27 | Outpatient (CLI) | payer BC | LOC: M WHC 13:58 | PROVIDERS: ATTEND Obstetrics & Gynecology | DX: Z34.92 Encounter for supervision of normal pregnancy, unspecified, second trimester (principal); O34.219 Maternal care for unspecified type scar from previous cesarean delivery; Z3A.19 19 weeks gestation of pregnancy ==

== ENCOUNTER → 2022-07-28 | Outpatient (CLI) | payer BC ==
[2022-07-28 14:25] LABS: HEMOGLOBIN 10.6 g/dl (12.0-15.5); MEAN CORPUSCULAR HEMOGLOBIN 29.2 pg (27.0-33.0); MEAN CORPUSCULAR HGB CONC 32.1 g/dl (32.0-36.5); MEAN CORPUSCULAR VOLUME 90.9 fl (80.0-96.0); PLATELET COUNT, AUTOMATED 323 10^3/uL (150-450); RED BLOOD COUNT 3.63 10^6/uL (4.00-5.40); WHITE BLOOD COUNT 11.1 10^3/uL (4.0-10.0)
[2022-07-28 14:43] LABS: TOTAL PROTEIN,RANDOM URINE 11.8 MG/DL (0.0-14.0)
[2022-07-28 14:48] LABS: CREATININE,RANDOM URINE 89.5 MG/DL
[2022-07-28 17:20] LABS: GC DNA AMPLIFICATION NEGATIVE (NEGATIVE)
== END ==
LOC: M PLALAB 09:08
PROVIDERS: ATTEND Obstetrics & Gynecology
DX: Z34.92 Encounter for supervision of normal pregnancy, unspecified, second trimester (principal); Z3A.00 Weeks of gestation of pregnancy not specified

== ENCOUNTER → 2022-08-05 | Outpatient (CLI) | payer BC ==
[2022-08-05 13:19] LABS: ALBUMIN 2.5 G/DL (3.2-5.2); ALKALINE PHOSPHATASE 75 U/L (46-116); ALT/SGPT 10 U/L (7.0-40); AST/SGOT 10 U/L (<34); BILIRUBIN,TOTAL 0.4 MG/DL (0.3-1.2); BLOOD UREA NITROGEN 5 MG/DL (9-23); CARBON DIOXIDE LEVEL 25 MMOL/L (20-31); CHLORIDE LEVEL 104 MMOL/L (98-107); CREATININE FOR GFR 0.52 MG/DL (0.55-1.30); GLOMERULAR FILTRATION RATE > 60.0 (>60); GLUCOSE, FASTING 85 MG/DL (60-100); POTASSIUM SERUM 4.1 MMOL/L (3.5-5.1); SODIUM LEVEL 136 MMOL/L (136-145); TOTAL PROTEIN 5.8 G/DL (5.7-8.2)
== END ==
LOC: M LAB 07:36
PROVIDERS: ATTEND Obstetrics & Gynecology
DX: O99.810 Abnormal glucose complicating pregnancy (principal); Z3A.00 Weeks of gestation of pregnancy not specified

== ENCOUNTER → 2022-09-20 | Outpatient (REF) | payer BC | LOC: M SFHCWAGY 10:23 | PROVIDERS: ATTEND Obstetrics & Gynecology | DX: O34.211 Maternal care for low transverse scar from previous cesarean delivery (principal) ==

== ENCOUNTER 2022-09-30 10:42 | Outpatient (CLI) | payer BC ==
[2022-09-30] VITALS (9 sets, daily range): BP systolic 109–130; BP diastolic 58–74
[~2022-09-30] VITALS: Ht 170.2 cm; Wt 93.8 kg
[~2022-09-30 10:42] MED LIST changes: +ECOT81TA5 PO; +LEVOTAB10 PO
[2022-09-30] MEDS ORDERED: ACET325C5 PO (11:18)
[2022-09-30] MEDS ORDERED: HOME MED LIST COMPLETE! XX SCH (11:20)
[2022-09-30 13:08] LABS: HEMOGLOBIN 9.9 g/dl (12.0-15.5); MEAN CORPUSCULAR HEMOGLOBIN 26.5 pg (27.0-33.0); MEAN CORPUSCULAR HGB CONC 31.9 g/dl (32.0-36.5); MEAN CORPUSCULAR VOLUME 83.1 fl (80.0-96.0); PLATELET COUNT, AUTOMATED 326 10^3/uL (150-450); RED BLOOD COUNT 3.73 10^6/uL (4.00-5.40); WHITE BLOOD COUNT 11.5 10^3/uL (4.0-10.0)
[2022-09-30 13:26] LABS: CREATININE,RANDOM URINE 22.2 MG/DL; TOTAL PROTEIN,RANDOM URINE < 6.0 MG/DL (0.0-14.0)
[2022-09-30 13:40] LABS: URIC ACID 4.4 MG/DL (3.1-7.8)
[2022-09-30 13:42] LABS: LDH LACTATE DEHYDROGENASE 169 U/L (120-246)
[2022-09-30 13:43] LABS: ALBUMIN 2.3 G/DL (3.2-5.2); ALKALINE PHOSPHATASE 100 U/L (46-116); ALT/SGPT 11 U/L (7.0-40); AST/SGOT 15 U/L (<34); BILIRUBIN,TOTAL 0.4 MG/DL (0.3-1.2); BLOOD UREA NITROGEN 6 MG/DL (9-23); CARBON DIOXIDE LEVEL 22 MMOL/L (20-31); CHLORIDE LEVEL 107 MMOL/L (98-107); CREATININE FOR GFR 0.55 MG/DL (0.55-1.30); GLOMERULAR FILTRATION RATE > 60.0 (>60); GLUCOSE, FASTING 71 MG/DL (60-100); POTASSIUM SERUM 3.8 MMOL/L (3.5-5.1); SODIUM LEVEL 136 MMOL/L (136-145); TOTAL PROTEIN 5.4 G/DL (5.7-8.2)
== END 2022-09-30 16:19 | disposition home or self-care (01) ==
LOC: M LDO 10:42
PROVIDERS: ATTEND Obstetrics & Gynecology
DX: O26.893 Other specified pregnancy related conditions, third trimester (principal); R03.0 Elevated blood-pressure reading, without diagnosis of hypertension; Z87.59 Personal history of other complications of pregnancy, childbirth and the puerperium; Z3A.37 37 weeks gestation of pregnancy
CPT/HCPCS: 36415; 59025; 80053; 82570; 83615; 84156; 84550; 85027; G0463

== ENCOUNTER 2022-10-12 05:38 | Inpatient (IN) | payer BC ==
[~2022-10-12] VITALS: Ht 170.2 cm; Wt 95.4 kg
[2022-10-12] VITALS (7 sets, daily range): BP systolic 116–141; BP diastolic 68–86
[~2022-10-12 05:38] MED LIST changes: +ACET325C5 PO
[2022-10-12] MEDS ORDERED: LACTATED RINGER'S 1000 ML IV STA (05:42)
[2022-10-12] MEDS ORDERED: ceFAZolin SOD 2 GM in IV 1 EA IV ONE (05:45)
[2022-10-12] MEDS ORDERED: LR 1,000 ML IV SCH (05:45)
[2022-10-12] MEDS ORDERED: BICITRA 30ML SOLN UDC PO ONE (05:45)
[2022-10-12 06:36] LABS: HEMATOCRIT 30.7 % (36.0-47.0); HEMOGLOBIN 9.8 g/dl (12.0-15.5); MEAN CORPUSCULAR HEMOGLOBIN 26.1 pg (27.0-33.0); MEAN CORPUSCULAR HGB CONC 31.9 g/dl (32.0-36.5); MEAN CORPUSCULAR VOLUME 81.6 fl (80.0-96.0); PLATELET COUNT, AUTOMATED 308 10^3/uL (150-450); RED BLOOD COUNT 3.76 10^6/uL (4.00-5.40); WHITE BLOOD COUNT 12.3 10^3/uL (4.0-10.0)
[2022-10-12] MEDS ORDERED: OXYTOCIN 30UNITS IN 0.9% NaCl 500ML IV BAG As Ordered ONE ×2 (07:23→09:28)
[2022-10-12] MEDS ORDERED: ePHEDrine SULFATE 25 MG/5 ML(5MG/ML) SYRINGE As Ordered ONE (07:25)
[2022-10-12] MEDS ORDERED: PHENYLephrine 500MCG 5ML (100MCG/ML) SYRINGE As Ordered ONE (07:25)
[2022-10-12] MEDS ORDERED: MORPHINE PRES-FREE INJ 10 MG/10 ML VIAL As Ordered ONE (07:27)
[2022-10-12] MEDS ORDERED: ONDANSETRON 4MG 2ML VIAL As Ordered ONE (08:10)
[2022-10-12] MEDS ORDERED: KETOROLAC 60MG 2ML VIAL As Ordered ONE (08:10)
[2022-10-12] MEDS ORDERED: METOCLOPRAMIDE INJ 10MG/2ML VIAL As Ordered ONE (08:10)
[2022-10-12] MEDS ORDERED: oxyCODONE 5MG TAB PO PRN (09:10)
[2022-10-12] MEDS ORDERED: NALOXONE INJ 0.4MG/1ML VIAL IV PRN ×2 (09:10)
[2022-10-12] MEDS ORDERED: diphenhydrAMINE 50MG/ML VIAL IV PRN (09:10)
[2022-10-12] MEDS ORDERED: METOCLOPRAMIDE INJ 10MG/2ML VIAL IV PRN (09:10)
[2022-10-12] MEDS ORDERED: **NOTE PATIENT COMMENT** MISC XX SCH (09:10)
[2022-10-12] MEDS ORDERED: ONDANSETRON 4MG 2ML VIAL IV PRN (09:10)
[2022-10-12] MEDS ORDERED: fentaNYL 100 MCG/2 ML INJECTION IV PRN (09:10)
[2022-10-12] MEDS ORDERED: MEPERIDINE 25 MG/ML 1ML VIAL IV PRN (09:10)
[2022-10-12] MEDS ORDERED: HYDROMORPHONE HCL 0.5 MG/ 0.5 ML SYRINGE IV PRN (09:10)
[2022-10-12] MEDS ORDERED: ANUSOL HC CREAM 30GM TOP PRN (09:15)
[2022-10-12] MEDS ORDERED: OXYTOCIN DRIP 30 UNITS in IV 1 EA IV SCH (09:15)
[2022-10-12] MEDS ORDERED: ACETAMINOPHEN 500 MG TAB PO PRN (09:15)
[2022-10-12] MEDS ORDERED: MORPHINE 2 MG/ML 1ML VIAL IV PRN (09:15)
[2022-10-12] MEDS ORDERED: RHOGAM 300MCG (1500IU) INJ IM SCH (09:15)
[2022-10-12] MEDS ORDERED: PERCOCET 5MG/325MG TAB PO PRN ×2 (09:15)
[2022-10-12] MEDS ORDERED: COLA100C5 PO (09:19)
[2022-10-12] MEDS ORDERED: IBUP80TA PO (09:19)
[2022-10-12] MEDS ORDERED: PERCOCET PO (09:20)
[2022-10-12] MEDS: LR 1,000 ML IV SCH ×2 (09:42→16:22)
[2022-10-12] MEDS: PRENATAL VITAMINS CHEWABLE TABLET PO SCH (13:27)
[2022-10-12] MEDS: KETOROLAC 30 MG/ML 1ML VIAL IV SCH ×2 (14:28→20:51)
[2022-10-12] MEDS: DOCUSATE SODIUM 100MG CAPSULE PO SCH (20:50)
[2022-10-12] MEDS: SLF 3 ML SYR IV SCH (20:53)
[2022-10-13 02:00] VITALS: BP 132/52
[2022-10-13] MEDS: KETOROLAC 30 MG/ML 1ML VIAL IV SCH (02:15)
[2022-10-13] MEDS: SLF 3 ML SYR IV SCH (02:16)
[2022-10-13 06:58] LABS: HEMATOCRIT 27.9 % (36.0-47.0); HEMOGLOBIN 8.7 g/dl (12.0-15.5); MEAN CORPUSCULAR HEMOGLOBIN 25.7 pg (27.0-33.0); MEAN CORPUSCULAR HGB CONC 31.2 g/dl (32.0-36.5); MEAN CORPUSCULAR VOLUME 82.3 fl (80.0-96.0); PLATELET COUNT, AUTOMATED 244 10^3/uL (150-450); RED BLOOD COUNT 3.39 10^6/uL (4.00-5.40); WHITE BLOOD COUNT 12.6 10^3/uL (4.0-10.0)
[2022-10-13] MEDS: PRENATAL VITAMINS CHEWABLE TABLET PO SCH (08:15)
[2022-10-13] MEDS: DOCUSATE SODIUM 100MG CAPSULE PO SCH ×2 (08:15→20:38)
[2022-10-13] MEDS: LR 1,000 ML IV SCH ×2 (08:16→09:15)
[2022-10-13 10:00] VITALS: BP 131/71
[2022-10-13] MEDS ORDERED: diphenhydrAMINE 50MG/ML VIAL IV PRN (10:20)
[2022-10-13] MEDS: IBUPROFEN 800 MG TAB PO SCH ×2 (10:29→18:43)
[2022-10-13 18:35] VITALS: BP 144/88
[2022-10-13 19:15] VITALS: BP 142/82
[2022-10-13] MEDS: SIMETHICONE 80MG CHEW TAB PO PRN (19:35)
[2022-10-13 22:00] VITALS: BP 131/74
[2022-10-14 02:00] VITALS: BP 138/77
[2022-10-14] MEDS: IBUPROFEN 800 MG TAB PO SCH ×2 (02:28→09:54)
[2022-10-14] MEDS: SIMETHICONE 80MG CHEW TAB PO PRN (04:31)
[2022-10-14 06:30] VITALS: BP 134/79
[2022-10-14] MEDS ORDERED: MEASLES,MUMPS,RUBELLA VACCINE INJ (MMR-II) SC.IMMUN ONE (09:00)
[2022-10-14] MEDS: PRENATAL VITAMINS CHEWABLE TABLET PO SCH (09:53)
[2022-10-14] MEDS: DOCUSATE SODIUM 100MG CAPSULE PO SCH (09:54)
[2022-10-14 10:00] VITALS: BP 139/82
== END 2022-10-14 12:31 | disposition home or self-care (01) | DRG 540 ==
LOC: M LDI 05:38 → M OBS 11:05
PROVIDERS: ADMIT Obstetrics & Gynecology; ATTEND Obstetrics & Gynecology
PROC: 10D00Z1 Extraction of Products of Conception, Low, Open Approach (ICD-10-PCS; principal; 2022-10-12 07:30)
DX: O34.211 Maternal care for low transverse scar from previous cesarean delivery (principal); Z3A.39 39 weeks gestation of pregnancy; Z37.0 Single live birth

== ENCOUNTER → 2023-07-18 | Outpatient (REF) | payer BC | LOC: M PLALAB 14:31 | PROVIDERS: ATTEND Obstetrics & Gynecology | DX: Z12.4 Encounter for screening for malignant neoplasm of cervix (principal) | CPT/HCPCS: 87624; G0123 ==

== ENCOUNTER → 2024-06-13 | Outpatient (CLI) | payer BC ==
[2024-06-13 13:27] LABS: HEMATOCRIT 37.4 % (36.0-47.0); HEMOGLOBIN 12.6 g/dl (12.0-15.5); MEAN CORPUSCULAR HEMOGLOBIN 29.9 pg (27.0-33.0); MEAN CORPUSCULAR HGB CONC 33.7 g/dl (32.0-36.5); MEAN CORPUSCULAR VOLUME 88.8 fl (80.0-96.0); PLATELET COUNT, AUTOMATED 331 10^3/uL (150-450); RED BLOOD COUNT 4.21 10^6/uL (4.00-5.40); WHITE BLOOD COUNT 12.6 10^3/uL (4.0-10.0)
[2024-06-13 14:33] LABS: HIV 1&2 SCREEN NEGATIVE (NEGATIVE)
[2024-06-13 14:41] LABS: HEPATITIS C VIRUS ABY INDEX < 0.02 INDEX (<0.8); Trichomonas vaginalis (AMP) NOT DETECTED (NEGATIVE)
[2024-06-13 15:05] LABS: GC DNA AMPLIFICATION NEGATIVE (NEGATIVE)
== END ==
LOC: M PLALAB 09:18
PROVIDERS: ATTEND Nurse Practitioner Family
DX: Z34.81 Encounter for supervision of other normal pregnancy, first trimester (principal); Z3A.00 Weeks of gestation of pregnancy not specified

== ENCOUNTER → 2024-07-06 | Outpatient (CLI) | payer BC, SELFPAY ==
[2024-07-06 13:50] LABS: HEMATOCRIT 36.9 % (36.0-47.0); HEMOGLOBIN 12.4 g/dl (12.0-15.5); MEAN CORPUSCULAR HEMOGLOBIN 30.5 pg (27.0-33.0); MEAN CORPUSCULAR HGB CONC 33.6 g/dl (32.0-36.5); MEAN CORPUSCULAR VOLUME 90.7 fl (80.0-96.0); PLATELET COUNT, AUTOMATED 305 10^3/uL (150-450); RED BLOOD COUNT 4.07 10^6/uL (4.00-5.40); WHITE BLOOD COUNT 10.1 10^3/uL (4.0-10.0)
[2024-07-06 14:02] LABS: URIC ACID 2.7 MG/DL (3.1-7.8)
[2024-07-06 14:04] LABS: LDH LACTATE DEHYDROGENASE 145 U/L (120-246)
[2024-07-06 14:05] LABS: ALT/SGPT < 9 U/L (7.0-40); AST/SGOT < 8 U/L (<34); BILIRUBIN,TOTAL 0.4 MG/DL (0.3-1.2); CREATININE FOR GFR 0.56 MG/DL (0.55-1.30); GLOMERULAR FILTRATION RATE > 60.0 (>60)
[2024-07-06 14:09] LABS: TOTAL PROTEIN,RANDOM URINE 9.2 MG/DL (0.0-14.0)
[2024-07-06 14:13] LABS: CREATININE,RANDOM URINE 174.3 MG/DL
== END ==
LOC: M PLALAB 10:44
PROVIDERS: ATTEND Nurse Practitioner Family
DX: O09.299 Supervision of pregnancy with other poor reproductive or obstetric history, unspecified trimester (principal); Z82.79 Family history of other congenital malformations, deformations and chromosomal abnormalities; Z3A.00 Weeks of gestation of pregnancy not specified

== ENCOUNTER → 2024-08-10 | Outpatient (CLI) | payer BC | LOC: M WHC 14:51 | PROVIDERS: ATTEND Nurse Practitioner Family | DX: Z34.82 Encounter for supervision of other normal pregnancy, second trimester (principal) ==

== ENCOUNTER → 2024-09-10 | Outpatient (CLI) | payer BC | LOC: M WHC 09:26 | PROVIDERS: ATTEND Nurse Practitioner Family | DX: Z34.82 Encounter for supervision of other normal pregnancy, second trimester (principal); Z3A.22 22 weeks gestation of pregnancy ==

== ENCOUNTER 2024-12-02 15:52 | Outpatient (CLI) | payer BC ==
[~2024-12-02] VITALS: Ht 170.2 cm; Wt 86.2 kg
[2024-12-02 16:11] VITALS: BP 133/80
[2024-12-02] MEDS ORDERED: ZYRTTAB8 PO (16:14)
[2024-12-02] MEDS ORDERED: ASPI81CH33 PO (16:14)
[2024-12-02] MEDS ORDERED: HOME MED LIST COMPLETE! XX SCH (16:15)
[2024-12-02 16:27] VITALS: BP 128/74
== END 2024-12-02 16:38 | disposition home or self-care (01) ==
LOC: M LDO 15:52
PROVIDERS: ATTEND Obstetrics & Gynecology
DX: O26.893 Other specified pregnancy related conditions, third trimester (principal); O34.219 Maternal care for unspecified type scar from previous cesarean delivery; R03.0 Elevated blood-pressure reading, without diagnosis of hypertension; R51.0 Headache with orthostatic component, not elsewhere classified; Z3A.34 34 weeks gestation of pregnancy; Z87.59 Personal history of other complications of pregnancy, childbirth and the puerperium
CPT/HCPCS: 59025; G0463

== ENCOUNTER → 2024-12-14 | Outpatient (REF) | payer BC, OTHER ==
[~2024-12-14] MED LIST changes: +ASPI81CH33 PO; +CLAR5TAB11 PO; +ZYRTTAB8 PO
== END ==
LOC: M SFHCWAGY 10:36
PROVIDERS: ATTEND Obstetrics & Gynecology
DX: Z34.03 Encounter for supervision of normal first pregnancy, third trimester (principal); Z3A.36 36 weeks gestation of pregnancy